=== PATIENT | male | born 1955 | race Caucasian/White ===

== ENCOUNTER 2017-10-04 14:11 | Outpatient (CLI) | payer BC ==
--- NOTE | 2017-10-04 15:51 | RAD ---
THREE VIEWS LEFT ANKLE: Date: 10-04-17 Comparison: None. History: Ankle pain. FINDINGS: The talar dome and ankle mortise appear intact. No displaced fracture or evidence of dislocation. The re is enthesophyte formation at the origin of the plantar aponeurosis and insertion of the achilles' tendon. There is mild dorsal degenerative change within the midfoot. IMPRESSION: No acute fracture or evidence of dislocation is seen. POS: [facility]
== END 2017-10-04 14:12 | disposition home or self-care (01) ==
LOC: SCSRAD 14:11
DX: M25.572 Pain in left ankle and joints of left foot (principal)